=== PATIENT | female | born 1960 | race African-American/Black ===

== ENCOUNTER 2020-02-01 07:56 | Outpatient (CLI) | payer MEDICARE, MEDICAID, SELFPAY ==
--- NOTE | 2020-02-04 11:19 | WPDPFTINT ---
PFT Interpretation PFT Interpretation: This PFT met all criteria for ATS standards and reproducibility FEV/FVC post bronchodilator 82% FEV1 59% or 1.43 liters FVC 54% or 1.74 liters TLC 46% or 2.36 liters RV 34% RV/TLC 27% DLCO 32% when adjusted for alveolar volume but not adjusted for hemoglobin Flow volume loops showed a restrictive pattern Impression: Restrictive ventilatory defect with severely reduced diffusion capacity. 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 Clinical correlation is advised.
== END 2020-02-01 07:57 | disposition home or self-care (01) ==
LOC: ANHCARD 08:00
PROVIDERS: PCP Internal Medicine Infectious Disease; Visit Provider Nurse Practitioner
DX: J84.9 Interstitial pulmonary disease, unspecified (principal); R94.2 Abnormal results of pulmonary function studies
CPT/HCPCS: 94060; 94726; 94729